=== PATIENT | male | born 1980 | race Caucasian/White ===

== ENCOUNTER 2021-06-17 16:01 | Emergency (ER) | payer OTHER ==
[~2021-06-17] VITALS: Ht 185.4 cm; Wt 88.5 kg
== END 2021-06-17 19:54 | disposition home or self-care (01) ==
LOC: FER 16:01
DX: M54.2 Cervicalgia (principal); G89.29 Other chronic pain; H93.8X1 Other specified disorders of right ear; I11.0 Hypertensive heart disease with heart failure; I50.9 Heart failure, unspecified; F17.210 Nicotine dependence, cigarettes, uncomplicated; Z79.899 Other long term (current) drug therapy
CPT/HCPCS: 99283